=== PATIENT | female | born 2005 | race Caucasian/White ===

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

== ENCOUNTER 2025-01-01 06:38 | Observation (INO) | payer BC, SELFPAY ==
[2024-12-31 23:34] VITALS: BP 109/75
[2025-01-01 00:02] LABS: Urine Albumin 1+ (Neg - Trace); Urine Bilirubin Negative (Negative); Urine Glucose Negative (Negative); Urine Ketone Negative (Negative); Urine Leukocyte Negative (Negative); Urine Nitrite Negative (Negative); Urine Occult Blood 3+ (Negative); Urine Specific Gravity 1.015 (<1.030); Urine Urobilinogen Negative (Neg - 1+)
[2025-01-01 00:03] LABS: Urine Character Clear (Clear); Urine Color Yellow
[2025-01-01 00:20] LABS: Urine Bacteria Moderate (Negative)
[2025-01-01 00:53] LABS: HCG, Urine Qualitative Screen Negative
[2025-01-01 01:58] VITALS: BMI 19.3
[2025-01-01] MEDS: TYLENOL 650 MG PO ×2 (01:59→21:02)
[2025-01-01] MEDS: NSS 1000 IV ×3 (02:13→19:48)
[2025-01-01] MEDS: TORADOL 15 MG IV (02:13)
[2025-01-01] MEDS: COMPAZINE 10 MG IV (02:13)
[2025-01-01] MEDS: ROCEPHIN 2000 MG IV (02:23)
[2025-01-01] MEDS: BENADRYL 25 MG IV ×2 (02:28→02:42)
[2025-01-01 02:33] LABS: % Basophils 0.8 % (0-2); % Eosinophils 0.4 % (0-6); % Immature Granulocytes 0.2 % (0-0.5); % Lymphocytes 18.9 % (20.5-51.1); % Monocytes 12.6 % (1.7-9.3); % Neutrophils 67.1 % (42.2-75.2); Absolute Basophils 0.1 10^3/uL (0-0.2); Absolute Lymphocytes 1.8 10^3/uL (1.2-3.4); Absolute Monocytes 1.2 10^3/uL (0.1-0.6); Absolute Neutrophils 6.2 10^3/uL (1.4-6.5); Hematocrit 32.6 % (37.0-47.0); Hemoglobin 10.9 g/dL (12.0-16.0); Mean Corp Hgb Conc. 33.4 g/dL (33.0-37.0); Mean Corpuscular Hgb 26.3 pg (27.0-31.0); Mean Corpuscular Volume 78.7 fL (81.0-99.0); Mean Platelet Volume 9.8 fL (7.4-10.4); Nucleated Red Blood Cells % 0 %; Platelet Count 274 10^3/uL (130-400); Red Blood Cell Count 4.14 10^6/uL (4.20-5.40); Red Cell Dist. Width 13.2 % (11.5-14.5); White Blood Cell Count 9.3 10^3/uL (4.8-10.8)
[2025-01-01 02:43] LABS: Lactic Acid 0.6 mmol/L (0.7-2.0)
[2025-01-01 02:45] LABS: ALT (SGPT) 13 U/L (0-35); AST (SGOT) 20 U/L (14-36); Albumin 4.6 g/dl (3.5-5.0); Alkaline Phosphatase 66 U/L (38-126); Blood Urea Nitrogen 6 mg/dl (7-17); Calcium 9.3 mg/dl (8.4-10.2); Carbon Dioxide 23 mmol/L (22-30); Chloride 104 mmol/L (98-107); Estimated Creatinine Clearance 113 ml/min; Glucose 92 mg/dl (70-99); Potassium 3.7 mmol/L (3.5-5.1); Sodium 139 mmol/L (135-145); Total Bilirubin 0.7 mg/dl (0.2-1.3); Total Protein 7.4 g/dl (6.3-8.2); eGFR > 60.00
--- NOTE | 2025-01-01 03:47 | ED.GENMED ---
History of Present Illness
General
Chief Complaint: Flank Pain
Source: patient and family
Exam Limitations: none
Time Seen by Provider: 01/01/25 01:14
Nursing documentation reviewed up to this point in time: agreed with
History of Present Illness
History of Present Illness:
19-year-old female presenting to the emergency department today with concerns of flank pain mainly to the left side rating to her abdomen UTI. Symptoms do not been improving. Has had nausea vomiting some slight diarrhea. Also has a bit of
headache described as posterior some frontal pressure as well. Noticed a fever throughout the day today. Worse over the past few days was recently started on clindamycin 3 days ago for
Review of Systems
Review of Systems
Allergies reviewed?: Yes
All Other Systems: ROS reviewed and negative except as documented in HPI and ROS
Phy Exam
Physical Exam
Physical Exam:
GENERAL: Alert , in no apparent distress
EYE: pupils equal and reactive
NECK: Supple, no significant adenopathy.
ENT: o/p clr, mmm.
CARDIAC: Regular rate and rhythm .
LUNGS: Clear breath sounds bilaterally, no acute respiratory distress, no wheezes/rales/rhonchi
ABDOMEN: Left-sided abdominal pain to palpation as well as left-sided CVA tenderness
NEUROLOGICAL: Alert and oriented, no focal neuro deficits
SKIN: Warm and dry, skin intact.
MUSCULOSKELETAL: No edema, well perfused.
PSYCH: Normal and appropriate interaction.
Course
Orders/Labs/Results
Orders:
Orders
12/31/24 23:49
HCG, Urine Qualitative Screen Urgent
Date Specimen was Collected: 12/31/24
Time Specimen was Collected: 23:44
Comment: ADDED
Urinalysis Reflex To Culture Urgent
Date Specimen was Collected: 12/31/24
Time Specimen was Collected: 23:44
Urine Microscopic Reflex Cult Urgent
Urine Culture Urgent
ANDREI Source: U
Specimen Description:
Date Specimen was Collected: 12/31/24
Time Specimen was Collected: 23:44
01/01/25 00:35
Add On- LAB Urgent
Tests Added?: urine hcg qualitative
01/01/25 01:43
CT Abd/Pel (IV only)-DH only Urgent
Comment:
Reason For Exam: left flank/abd pain uti
0.9% Sodium Chloride 1000 ml [Nss] 1,000 ml IV BOLUS
Acetaminophen [Tylenol] 650 mg PO NOW STA
CefTRIAXone [Rocephin] 2,000 mg IV NOW STA
Ketorolac [Toradol] 15 mg IV NOW STA
Prochlorperazine [Compazine] 10 mg IV NOW STA
Test Result ONCE
01/01/25 01:47
Sterile Water [Sterile Water For Injection] 20 ml .ROUTE .[facility]
01/01/25 02:12
Complete Blood Count/With Diff Urgent
Comprehensive Metabolic Panel Urgent
Lactic Acid Urgent
Lyme Progressive Urgent
Blood Culture Q30M
ANDREI Source: Blood/Venous
Specimen Description:
Blood Culture Q30M
ANDREI Source: Blood/Venous
Specimen Description:
01/01/25 02:26
Diphenhydramine [Benadryl] 50 mg IV NOW STA
01/01/25 02:28
Diphenhydramine [Benadryl] 25 mg IV NOW STA
01/01/25 02:41
Diphenhydramine [Benadryl] 25 mg IV NOW STA
Abnormal Lab Results
12/31/24 01/01/25
23:49 02:12
RBC 4.14 L 10^6/uL
(4.20-5.40)
Hgb 10.9 L g/dL
(12.0-16.0)
Hct 32.6 L %
(37.0-47.0)
MCV 78.7 L fL
(81.0-99.0)
MCH 26.3 L pg
(27.0-31.0)
Absolute Monos (auto) 1.2 H 10^3/uL
(0.1-0.6)
Lymphocytes % 18.9 L %
(20.5-51.1)
Monocytes % 12.6 H %
(1.7-9.3)
BUN 6 L mg/dl
(7-17)
Lactic Acid 0.6 L mmol/L
(0.7-2.0)
Ur Occult Blood Reflex 3+ A
(Negative)
Urine RBC 7-10 A /HPF
(0-2)
Urine WBC (Reflex) 11-15 A /HPF
(0-5)
Urine Bacteria (Reflex) Moderate A
(Negative)
Urine Albumin (Reflex) 1+ A
(Neg - Trace)
01/01/25 02:12
01/01/25 02:12
Vital Signs
Initial and Last Documented VS:
Initial Vital Signs
Temp Pulse Resp BP Pulse Ox
101.4 F H 101 18 109/75 100
12/31/24 23:34 12/31/24 23:34 12/31/24 23:34 12/31/24 23:34 12/31/24 23:34
Last Documented Vital Signs
Temp Pulse Resp BP Pulse Ox
101.4 F H 102 20 109/75 98
12/31/24 23:34 01/01/25 03:00 01/01/25 03:00 12/31/24 23:34 01/01/25 03:30
MDM/Problems Addressed
MDM/Problems Addressed:
19-year-old female presenting to the emergency department today with concerns of urinary symptoms of the past few days has been on clindamycin for a few days without improvement also has flank pain with radiation to the left abdomen has some
generalized achiness at this point as well as headache nausea and vomiting. On arrival febrile to 1-1.4 mildly tachycardic. Urinalysis consistent with potential infection. Otherwise labs without emergent findings. Patient was complaining of some
headache nausea was given Compazine have what appeared to be akathisia was given Benadryl had improvement of symptoms over the next half an hour or so. CT scan confirming pyelonephritis. Considering this plan to admit with IV antibiotics
concerning failed outpatient oral antibiotics.
*Critical Care Note
Total Time (30-74mins, 75-104mins- exclusive of procedures): Not Applicable
ED Attending Note
-
Portions of this chart may have been created with voice recognition software.� Occasional wrong word or��sound alike� substitutions may have occurred due to the inherent limitations of voice recognition software.
Discharge Plan
Departure
Patient Disposition: Admit
Date of Disposition: 01/01/25
Time of Disposition: 05:55
Admit to: Med/Surg
Admit to doctor: Chanell
Presentation/result/management discussed w/ accepting MD/DO: Hospitalist
Patient with high blood pressure during this ER visit?: No
Condition: Good
Covid-19: Not Applicable
Discharge Problem:
Pyelonephritis
Prescriptions:
No Action
sertraline [Zoloft] 100 mg Tablet
125 mg PO DAILY
Pepcid
20 mg PO DAILY
ondansetron 4 mg tablet,disintegrating
4 mg PO Q8H PRN (Reason: nausea and vomiting) Qty: 10 0RF
cetirizine [Zyrtec] 10 mg Tablet
10 mg PO DAILY
Ellura
36 mg PO DAILY
Referrals:
Josefina Wing DO [Family Provider] -
Interventions
Interventions:
*Risk Screen - Suicide Last Done: 12/31/24 23:34
*Neglect/Abuse Screening Last Done: 01/01/25 02:39
*ED- Fall Risk Assessment Last Done: 01/01/25 02:39
*ED COVID-19 Vaccine History Last Done: 01/01/25 02:39
Discharge Date and Time
Print Language: MACEDONIAN
[2025-01-01 05:21] VITALS: BP 117/62
--- NOTE | 2025-01-01 05:57 | HPS.HSE ---
Family Physician
-
Family Physician: Josefina Wing
Chief Complaint
-
Flank pain
History of Present Illness
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
Patient started having flank pain on Saturday. She had associated nausea and vomiting. Is unclear whether she had fevers at home. She was seen at urgent care and was started on clindamycin for urinary tract infection. Patient continues to have
symptoms and today she had a fever nausea and vomiting so she came to the emergency department for further evaluation. She has continued to have flank pain.
She was seen in ED multiple times a year ago for flank pain and was found to have pyelonephritis at that time. She was treated with antibiotics. Ultimately she was placed on probiotic agent and has not had urinary tract infections since then.
In the emergency department today she was febrile to 101.4, blood pressure was 109/75 with a pulse of 110.
CBC was unremarkable. Electrolytes BUN/creatinine were all in the normal range. CT scan of the abdomen pelvis suggesting mild left-sided pyelonephritis. No obstruction in ureteral calculus or hydroureteronephrosis. 2.3 cm simple cyst versus
dominant follicle in the left ovary.
Medical History
Past Medical History
Past Medical History: Reports Asthma (exercise induced), Cancer (BRAC2 +), GERD, Psychiatric (anxiety, depression) and Other (Roto virus)
Past Surgical History: Reports Orthopedic (Knee )
Social History
Tobacco: Non-smoker
Alcohol: None
Drug: None
Personal: Single
Living: With Family
Family History
Family History: Not pertinent
Allergies / Home Medications
Allergies reflects when Allergies were last updated in [employer].
Home Medications with original date entered in [employer]
Allergy/Medication List:
Allergies
Allergy/AdvReac Type Severity Reaction Status Date / Time
amoxicillin Allergy Rash Verified 12/31/24 23:34
prochlorperazine Allergy Unknown Verified 01/01/25 02:44
[From Compazine]
Sulfa (Sulfonamide Allergy Rash Verified 12/31/24 23:34
Antibiotics)
Home Medications
sertraline 100 mg tablet (Zoloft) 125 mg PO DAILY Depression 07/31/22
Pepcid 20 mg PO DAILY 03/17/23
ondansetron 4 mg disintegrating tablet 4 mg PO Q8H PRN nausea and vomiting #10 tabs 11/24/23
Ellura 36 mg PO DAILY 01/01/25
cetirizine 10 mg tablet (Zyrtec) 10 mg PO DAILY 01/01/25
Review of Systems
-
History Source: Patient
Constitutional: Reports Fever
EENT: Reports No Symptoms
Respiratory: Reports No Symptoms
Cardiac: Reports No Symptoms
Abdomen/GI: Reports No Symptoms
: Reports Flank Pain
Musculoskeletal: Reports No Symptoms
Skin: Reports No Symptoms
Endocrine: Reports No Symptoms
Hematologic/Lymphatic: Reports No Symptoms
Psych: Reports No Symptoms
Physical Exam
Vital Signs
Vital Signs
Temp Pulse Resp BP Pulse Ox
101.4 F H 102 20 109/75 98
12/31/24 23:34 01/01/25 03:00 01/01/25 03:00 12/31/24 23:34 01/01/25 03:30
Physical Exam
General: Well Developed, Well Nourished and Comfortable
HEENT: NormoCephalic, Anicteric, Moist mucous membranes and Atraumatic
Respiratory: Clear
Cardiac: S1/S2 and Regular Rhythm
Breast: Deferred by me
GI: Soft, Non Tender, Non Distended and Normal Bowel Sounds
Rectal: Deferred by Provider
Genito-urinary: Deferred by me
Musculoskeletal: No Clubbing, No Cyanosis and No Edema
Skin: Warm
Neuro: AO x 3 and Nonfocal/grossly intact
Psych: Calm
Laboratory Results
-
01/01/25 02:12
01/01/25 02:12
Laboratory Results
Lactic Acid 0.6 mmol/L (0.7-2.0) L 01/01/25 02:12
Total Bilirubin 0.7 mg/dl (0.2-1.3) 01/01/25 02:12
AST 20 U/L (14-36) 01/01/25 02:12
ALT 13 U/L (0-35) 01/01/25 02:12
Alkaline Phosphatase 66 U/L (38-126) 01/01/25 02:12
Data Reviewed
-
CT Scan: Report Reviewed by me
Lab Data: Labs Reviewed by me
Old Records: Reviewed
Impression/Plan
-
IMPRESSION:
19 y.o with h/o UTI presenting to ED with persistent flank pain and fever after 48 hours of oral abx. U/A positive and CT a/p c/w pyelo. Was on clinda for 2 days prior.
PLAN:
Pyelonephritis - On clinda, based on prior sensitive should respond to normal UTI abx so will start IV and transition to PO when tolerating po well
- admit to med/surg
- blood and urine cultures sent
- IV ceftriaxone
- pain control and antiemetics
- hydration as needed.
DVT PPX - SCDs
Code status - full code
--- NOTE | 2025-01-01 07:50 | W.PN.HOSP.TC ---
Today's Communication/Plan
-
See plan
Assessment / Plan
Assessment / Plan
Physical Exam
General: Not in acute distress
HEENT: Normocephalic, Moist mucous membranes and Atraumatic
Respiratory: Clear to Auscultation Bilaterally
Cardiac: S1/S2 and Regular Rhythm
GI: Soft, Non Tender, Non Distended and Normal Bowel Sounds
Musculoskeletal: No Cyanosis and No Edema
Skin: Warm. Dry.
Neuro: AAO x 3 and Nonfocal/grossly intact
Psych: Calm
Assessment/Plan
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 Patient started having flank pain on December 28, 2024. She had
associated nausea and vomiting. It was unclear whether patient had any fevers at home. She was seen at urgent care and was started on Clindamycin for urinary tract infection. Patient continues to have symptoms and 12/31-01/01 she had a fever nausea
and vomiting so she came to the emergency department for further evaluation. She was seen in ED multiple times a year ago for flank pain and was found to have pyelonephritis at that time. She was treated with antibiotics. Ultimately she was placed
on probiotic agent and Cranberry Juice and has not had urinary tract infections since then. In the emergency department she was febrile to 101.4, blood pressure was 109/75 with a pulse of 110. CBC was unremarkable. Electrolytes BUN/creatinine were
all in the normal range. CT scan of the abdomen pelvis suggesting mild left-sided pyelonephritis. No obstruction in ureteral calculus or hydroureteronephrosis. 2.3 cm simple cyst versus dominant follicle in the left ovary.
Pyelonephritis - On clinda, based on prior sensitive should respond to normal UTI abx so will start IV and transition to PO when tolerating po well
History of Urethral Diverticulum
- Monitor on telemetry given tachycardia and soft blood pressures
- Had taken 2 days course of Clindamycin outpatient
- Follow-up blood and urine cultures
- IV ceftriaxone
- pain control and antiemetics
- hydration as needed.
- Appreciate ID
- Follow-up with urology outpatient
Compazine 'Allergy' associated with Shaking
Chronic Sweating
-Since age 10, as per patient's mother
BRCA2 positive
History of Endometriosis with surgery in March 2023 with removal of 9 lesions (as per patient's mother)
Sushila-Danlos syndrome - Hypermobile
2.2 cm left ovarian cyst
Mild free fluid in the pelvis
-As per radiologist, this may be physiologic; a recently ruptured cyst cannot be excluded.
DVT Prophylaxis - SCDs
Code Status - Full Code
Anticipated Discharge: 24 - 48 hours
Subjective/Interval History
-
Date of Service: January 01, 2025
Patient was seen and examined. She was sleeping after getting Benadryl for vomiting and headache.
Objective Data
-
Labs:
Laboratory Results
01/01/25
02:12
WBC 9.3
Hgb 10.9 L
Hct 32.6 L
Plt Count 274
Sodium 139
Potassium 3.7
Chloride 104
Carbon Dioxide 23
BUN 6 L
Creatinine 0.6
Glucose 92
Calcium 9.3
Total Bilirubin 0.7
AST 20
ALT 13
Alkaline Phosphatase 66
Vital Signs:
Vital Signs
Temp Pulse Resp BP Pulse Ox
98.3 F 72 18 117/62 98
01/01/25 06:00 01/01/25 06:00 01/01/25 06:00 01/01/25 05:21 01/01/25 06:00
[2025-01-01] MEDS: ZYRTEC 10 MG PO (09:18)
[2025-01-01] MEDS: PEPCID 20 MG PO (09:18)
[2025-01-01] MEDS: ZOLOFT 25 MG PO (09:18)
[2025-01-01] MEDS: ZOLOFT 100 MG PO (09:19)
[2025-01-01 09:21] VITALS: BP 97/56
--- NOTE | 2025-01-01 12:15 | PTCARENOTE ---
pt received as an admission to room 1145-01 from ED. pt ambulated from stretcher to bed without difficulty. Pt AAOX3, denies pain at this time. NS infusing per orders. pt oriented to unit and room. mother at bedside. updated on plan of care.
[2025-01-01 12:18] VITALS: BP 97/61; BMI 19.1
--- NOTE | 2025-01-01 14:07 | CON.ID ---
Addendum entered and electronically signed by Linn Moore MD 01/01/25 17:28:
I personally performed a history and physical exam of the patient and discussed management with the resident. I reviewed the resident's note and agree with the documented findings and plan of care HPI/CC with the following additions/corrections.
HPI: Ms Lazaro is a 19 year old female with history of recurrent UTIs attributed to urethral diverticulum who presented here today for flank pain since saturday, nausea, and vomiting. Saw urgent care and was started on clindamycin for UTI. Symptoms
did not improve and she developed fever today and presented here. Recurrent UTIs improved for several years on a cranberry juice supplement and this is her first one for several years.
Since arrival here she has been febrile to 101.4, bp overall stable though a bit hypotensive this afternoon, mild tachycardia has resolved, wbc 9.3, hgb 10.9, plt 274, no L shift, na 139, cr 0.6, lfts wnl, beta hcg negative, a lyme screen was sent
by the ER in progress, UA: 11-15 wbc/hpf and moderate bacteria, CT a/p with IV contrast only: mild pyelonephritis, urine and blood cultures x2 are in progress. She has received ceftriaxone without adverse effect.
Physical Exam
General: Comfortable
Respiratory: Clear to auscultation BL
Cardiac: S1/S2 and Regular Rhythm
GI: Soft, Non Tender, Non Distended and Normal Bowel Sounds
: no suprapubic tenderness, mild L sided CVA tenderness
Skin: Warm, some folliculitis on the chest
Assessment and Plan
Recurrent UTIs
Suspected UTI
H/o allergy to amoxicillin - rash; bactrim rash
- urine culture in progress
- blood cultures x2 in progress
- recommend against further strep screens in this 19 year old female
- Mom did a home influenza test that was faintly positive hours after the appropriate read time - symptoms have already resolved, do not recommend an antiviral at this time.
- follow clinically overnight on ceftriaxone, if discharge is planned could discharge with cefdinir 300 mg PO BID x14 days
- follow up with PCP re: lyme serologies. I would not have recommended them as her symptoms were consistent with UTI and have already resolved. Note that once positive lyme serologies typically remain positive for life.
Original Note:
Consultation
-
Date/Time Consultation Requested: 01/01/2025 2:45
Date/Time Consultation Performed: 01/01/2025 14:20
Requesting Provider: Bryant Arredondo MD
Performing Provider: Linn Moore MD
Reason for Consultation: Recurrent Pyelonephritis. urethral diverticulum,h/o endometriosis surgery
Chief Complaint / Past History
Chief Complaint
Recurrent pyelonephritis
History of Present Illness
Ms. Lazaro is a 19-year-old female with PMH of recurrent UTI 2/2 urethral diverticulum who presented to the ED on 01/01/2025 with 5 days history of left-sided flank pain. Patient was seen at bedside with mom and reports fever at home Tmax 103 on
Saturday with 1 episode of vomiting and diarrhea. She continued to have fever between 101-102 and went to urgent care 3 days ago where she was prescribed clindamycin given penicillin allergy (rash 2 years ago). Patient's symptoms did not improve
necessitating her visit to the ED today.
Patient's mom reports that patient was seen in the ED x 2 in October 2023 for similar presentation and was prescribed cranberry juice which has helped since then. While in the ED, she had a fever of 101.4, pulse 101, respiratory 18, BP 109/75 and
saturating at 100% on room air. Her chemistry shows WBC count of 9.3, Hb 10.9.
Past History
Past Medical History: Asthma (Exercise-induced), Cancer (BRCA2), GERD and Psychiatric (Anxiety, depression)
Past Surgical History: Orthopedic
Allergy History:
amoxicillin Allergy (Mild, Verified 01/01/25 13:47)
Rash
prochlorperazine [From Compazine] Allergy (Verified 01/01/25 02:44)
Unknown
Sulfa (Sulfonamide Antibiotics) Allergy (Verified 12/31/24 23:34)
Rash
Medications Reviewed: Yes
Social History
Tobacco: Non-Smoker
Alcohol: None
Drug: None
Personal: Single
Living: With Family
Family History
Family History: Not Pertinent
Review of Systems
Review of Systems
General: Fever; Negative Chills or Change in Appetite
HEENT: Negative Lymphadenopathy, Stiff Neck or Sinus Problems
Cardiovascular: Negative Chest Pain, Dyspnea, Edema or Palpitations
Respiratory: Negative Dyspnea, Cough or Cyanosis
Gasteroenterology: Negative Weight Loss, Nausea or Vomiting
Genital / Urological: Negative Dysuria, Hematuria or Stones
Musculoskeletal: Negative Joint Pain or Joint Swelling
Skin / Hair / Nails: Negative Urticaria, Rash, Lesions or Nail Changes
Neurological: Negative Headache
Psychological: Depression
All systems: All other systems were reviewed and were negative
Vital Signs
Temp Pulse Resp BP Pulse Ox
97.9 F 80 16 97/61 99
01/01/25 12:18 01/01/25 12:18 01/01/25 12:18 01/01/25 12:18 01/01/25 12:18
Physical Exam
Physical Exam
Constitutional: No Acute Distress and Comfortable
Eyes: Pupils Equal and Sclera Anicteric
Cardiovascular: Regular Rate and S1/S2; Negative Murmur or Rub
Pulmonary: Clear and Symmetric; Negative Wheezes, Rales or Rhonchi
Gastrointestinal: Soft, Non Tender, Non Distended and Normal Bowel Sounds
Musculoskeletal: Negative Joint Swelling or Joint Effusion
Skin: Warm and Dry; Negative Rash or Jaundice
Wound: None
Neurological: Awake, AO x 3 and No Motor Deficits
Psychological: Calm
Lab / Diagnostic Study Results
01/01/25 02:12
01/01/25 02:12
Abs Immat Gran (auto) 0.0 10^3/uL (0-0.05) 01/01/25 02:12
Absolute Neuts (auto) 6.2 10^3/uL (1.4-6.5) 01/01/25 02:12
Absolute Lymphs (auto) 1.8 10^3/uL (1.2-3.4) 01/01/25 02:12
Absolute Monos (auto) 1.2 10^3/uL (0.1-0.6) H 01/01/25 02:12
Absolute Basos (auto) 0.1 10^3/uL (0-0.2) 01/01/25 02:12
Immature Gran % 0.2 % (0-0.5) 01/01/25 02:12
Neutrophils % 67.1 % (42.2-75.2) 01/01/25 02:12
Lymphocytes % 18.9 % (20.5-51.1) L 01/01/25 02:12
Monocytes % 12.6 % (1.7-9.3) H 01/01/25 02:12
Eosinophils % 0.4 % (0-6) 01/01/25 02:12
Basophils % 0.8 % (0-2) 01/01/25 02:12
Lactic Acid 0.6 mmol/L (0.7-2.0) L 01/01/25 02:12
Ur Squamous Epith Cells 6-10 /LPF (Few) 12/31/24 23:49
Microbiology Results
Micro:
01/01/25 02:12 Blood Culture - Pending
Blood/Venous
01/01/25 02:12 Blood Culture - Pending
Blood/Venous
12/31/24 23:49 Urine Culture - Pending
Urine
Assessment / Plan
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
Assessment/plan:
#History of recurrent UTIs
#Pyelonephritis
- CT abdomen and pelvis consistent with pyelonephritis.
- Patient reports E. coli from cultures obtained at urgent care.
- Continue IV ceftriaxone, will give 1 more dose.
- Patient has history of penicillin allergy 2 years ago with urticarial rash and sulfa allergies.
- Will send home on cefdinir to complete 14 days course of antibiotics
Care Review
Plan reviewed with: Physician
--- NOTE | 2025-01-01 15:00 | CM ---
Met with patient and her mother at bedside
[facility] verified: [facility] [id number]
Patient lives with family; multilevel home; 3 steps to enter; 12 steps between floors; railings on stairs; her bedroom and bath on 2nd floor; bath has stall shower w/grab bar
PLOF: independent with ambulation, stairs, and ADLs; drives
Mother will transport home
Outpatient Observation Status Notice explained to mother; form signed @ [id number]
Plan: Discharge to home; no needs anticipated
[2025-01-01 15:45] VITALS: BP 98/60
[2025-01-01 19:29] VITALS: BP 94/58
[2025-01-01 23:23] VITALS: BP 105/55
[2025-01-02 03:13] VITALS: BP 97/58
[2025-01-02] MEDS: ROCEPHIN 2000 MG IV (05:55)
[2025-01-02] MEDS: STERILE WATER FOR INJECTION 20 ML IV (05:55)
[2025-01-02] MEDS: NSS 1000 IV (06:00)
[2025-01-02] MEDS: PEPCID 20 MG PO (07:25)
[2025-01-02] MEDS: ZOLOFT 100 MG PO (07:26)
[2025-01-02] MEDS: ZOLOFT 25 MG PO (07:27)
[2025-01-02] MEDS: ZYRTEC 10 MG PO (07:27)
[2025-01-02 07:31] VITALS: BP 109/72
[2025-01-02 09:41] LABS: % Basophils 0.9 % (0-2); % Eosinophils 2.4 % (0-6); % Immature Granulocytes 0.4 % (0-0.5); % Lymphocytes 25.2 % (20.5-51.1); % Monocytes 6.6 % (1.7-9.3); % Neutrophils 64.5 % (42.2-75.2); Absolute Basophils 0.1 10^3/uL (0-0.2); Absolute Eosinophils 0.1 10^3/uL (0-0.7); Absolute Lymphocytes 1.4 10^3/uL (1.2-3.4); Absolute Monocytes 0.4 10^3/uL (0.1-0.6); Absolute Neutrophils 3.5 10^3/uL (1.4-6.5); Hematocrit 30.7 % (37.0-47.0); Hemoglobin 9.8 g/dL (12.0-16.0); Mean Corp Hgb Conc. 31.9 g/dL (33.0-37.0); Mean Corpuscular Hgb 25.9 pg (27.0-31.0); Mean Corpuscular Volume 81.2 fL (81.0-99.0); Mean Platelet Volume 10.1 fL (7.4-10.4); Nucleated Red Blood Cells % 0 %; Platelet Count 236 10^3/uL (130-400); Red Blood Cell Count 3.78 10^6/uL (4.20-5.40); Red Cell Dist. Width 13.2 % (11.5-14.5); White Blood Cell Count 5.4 10^3/uL (4.8-10.8)
[2025-01-02 10:02] LABS: Blood Urea Nitrogen 8 mg/dl (7-17); Calcium 8.9 mg/dl (8.4-10.2); Carbon Dioxide 27 mmol/L (22-30); Chloride 110 mmol/L (98-107); Estimated Creatinine Clearance 112 ml/min; Glucose 118 mg/dl (70-99); Magnesium 1.6 mg/dl (1.6-2.3); Sodium 142 mmol/L (135-145); eGFR > 60.00
--- NOTE | 2025-01-02 11:12 | W.PN.ID1 ---
Date of Service
Date of Service: January 02, 2025
Today's Communication
- could discharge with cefdinir 300 mg PO BID x14 days total
- follow up with PCP re: lyme serologies. I would not have recommended them as her symptoms were consistent with UTI and have already resolved. Note that once positive lyme serologies typically remain positive for life.
ID service will no longer actively follow this patient please recall for further questions
Assessment / Plan
Assessment and Plan
Recurrent UTIs
Suspected UTI
H/o allergy to amoxicillin - rash; bactrim rash
- outpatient urine culture
- urine culture in progress - no growth here
- blood cultures x2 in progress
- could discharge with cefdinir 300 mg PO BID x14 days total
- follow up with PCP re: lyme serologies. I would not have recommended them as her symptoms were consistent with UTI and have already resolved. Note that once positive lyme serologies typically remain positive for life.
ID service will no longer actively follow this patient please recall for further questions
Chief Complaint
-: UTI
Subjective / Review of Systems
afebrile
bp stable
tolerating current therapies
Vital Signs / Physical Exam
Vital Signs
Vital Signs
Temp Pulse Resp BP Pulse Ox
98.0 F 82 16 109/72 98
01/02/25 07:31 01/02/25 07:31 01/02/25 07:31 01/02/25 07:31 01/02/25 07:31
Physical Exam
Constitutional: No Acute Distress
Cardiovascular: Regular Rate and S1/S2; Negative Murmur or Rub
Pulmonary: Clear and Symmetric; Negative Wheezes or Rales
Gastrointestinal: Soft, Non Tender, Non Distended and Normal Bowel Sounds
Skin: Warm and Dry; Negative Rash or Jaundice
Objective Data
Lab Data
Lab Results
01/02/25 08:49
01/02/25 08:49
Estimated Creat Clear 112 ml/min 01/02/25 08:49
Lactic Acid 0.6 mmol/L (0.7-2.0) L 01/01/25 02:12
Total Bilirubin 0.7 mg/dl (0.2-1.3) 01/01/25 02:12
AST 20 U/L (14-36) 01/01/25 02:12
ALT 13 U/L (0-35) 01/01/25 02:12
Alkaline Phosphatase 66 U/L (38-126) 01/01/25 02:12
Most recent labs reviewed.
Micro Results:
12/31/24 23:49 Urine Culture - Final
Urine NO GROWTH
01/01/25 02:12 Blood Culture - Preliminary
Blood/Venous No Growth in 24 hours- Final report to follow
01/01/25 02:12 Blood Culture - Preliminary
Blood/Venous No Growth in 24 hours- Final report to follow
--- NOTE | 2025-01-02 14:48 | W.PN.HOSP.TC ---
Today's Communication/Plan
-
Discharge today
Assessment / Plan
Assessment / Plan
Physical Exam
General: Not in acute distress
HEENT: Normocephalic, Moist mucous membranes and Atraumatic
Respiratory: Clear to Auscultation Bilaterally
Cardiac: S1/S2 and Regular Rhythm
GI: Soft, Non Tender, Non Distended and Normal Bowel Sounds
Musculoskeletal: No Cyanosis and No Edema
Skin: Warm. Dry.
Neuro: AAO x 3 and Nonfocal/grossly intact
Psych: Calm
Assessment/Plan
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 Patient started having flank pain on December 28, 2024. She had
associated nausea and vomiting. It was unclear whether patient had any fevers at home. She was seen at urgent care and was started on Clindamycin for urinary tract infection. Patient continues to have symptoms and 12/31-01/01 she had a fever nausea
and vomiting so she came to the emergency department for further evaluation. She was seen in ED multiple times a year ago for flank pain and was found to have pyelonephritis at that time. She was treated with antibiotics. Ultimately she was placed
on probiotic agent and Cranberry Juice and has not had urinary tract infections since then. In the emergency department she was febrile to 101.4, blood pressure was 109/75 with a pulse of 110. CBC was unremarkable. Electrolytes BUN/creatinine were
all in the normal range. CT scan of the abdomen pelvis suggesting mild left-sided pyelonephritis. No obstruction in ureteral calculus or hydroureteronephrosis. 2.3 cm simple cyst versus dominant follicle in the left ovary.
Suspected Complicated UTI - Pyelonephritis
Recurrent UTIs
History of Urethral Diverticulum
- Monitor on telemetry given tachycardia and soft blood pressures
- Had taken 2 days course of Clindamycin outpatient
- Follow-up blood and urine cultures
- IV ceftriaxone while inpatient
- On discharge: Cefdinir 300 mg PO BID x14 days total
- Follow-up with PCP regarding Lyme Serology results
- Appreciate ID
- Follow-up with urology outpatient
Compazine Reaction: Shaking
H/o allergy to amoxicillin - rash; bactrim rash
Chronic Sweating
-Since age 10, as per patient's mother
BRCA2 positive
History of Endometriosis with surgery in March 2023 with removal of 9 lesions (as per patient's mother)
Sushila-Danlos syndrome - Hypermobile
2.2 cm left ovarian cyst
Mild free fluid in the pelvis
-As per radiologist, this may be physiologic; a recently ruptured cyst cannot be excluded.
DVT Prophylaxis - SCDs
Code Status - Full Code
I spoke to patient's mom inside patient's room today, and in the presence of the patient; patient's mom said she was happy with patient's improvement and she agrees with discharging the patient home today.
More than 30 minutes spent in discharge including
Final examination of the patient
Summarizing hospital stay
Instructions for continuing care to all relevant caregivers
Preparation of discharge records, prescriptions, and referral forms
Total time spent (in minutes): 37
Anticipated Discharge: Today
Subjective/Interval History
-
Date of Service: January 02, 2025
Patient was seen and examined. She reported feeling much better, denied pain, fever, nausea, or vomiting. She would like to go home today.
Objective Data
-
Labs:
Laboratory Results
01/02/25
08:49
WBC 5.4
Hgb 9.8 L
Hct 30.7 L
Plt Count 236
Sodium 142
Potassium 4.0
Chloride 110 H
Carbon Dioxide 27
BUN 8
Creatinine 0.5 L
Glucose 118 H
Calcium 8.9
Vital Signs:
Vital Signs
Temp Pulse Resp BP Pulse Ox
98.0 F 82 16 109/72 98
01/02/25 07:31 01/02/25 07:31 01/02/25 07:31 01/02/25 07:31 01/02/25 11:20
I&O
01/01/25 01/02/25 01/03/25
06:59 06:59 06:59
Intake Total 1959 300 / 300
Balance 1959 300 / 300
[2025-01-02] MEDS: NSS IV (14:59)
[2025-01-02 15:21] VITALS: BP 105/65
--- NOTE | 2025-01-02 15:22 | W.DCSUMMARY ---
Discharge Summary
Discharge Data
Date of Admission: 01/01/25
Date of Discharge: 01/02/25
Total time spent discharging patient (in min): 37
-
Pending Results: Yes
Additional Pending Results:
Final results of blood cultures from January 01, 2025
Hospital Course
19-year-old female with past medical history of antibiotic allergies (rash with Amoxicillin and Bactrim) and recurrent urinary tract infections thought to be secondary to urethral diverticulum who presented to the emergency department with flank
pain. Abdomen/Pelvis CT was done showing (as per radiologist's report) possible mild acute pyelonephritis; 2.2 cm left ovarian cyst; mild free fluid in the pelvis. which could be physiologic - a recently ruptured cyst cannot be excluded. Patient was
determined to have complicated urinary tract infection and was started on intravenous Ceftriaxone. Patient's urine culture showed no growth. Patient's symptoms improved significantly and she was stable for discharge with Cefdinir oral antibiotics to
complete a total of 14 days course of antibiotics.
Discharge Plan
-
Patient Disposition: Home (Routine Discharge)
Discharge Diagnosis/Procedures: Suspected Complicated UTI - Pyelonephritis
Recurrent UTIs
History of Urethral Diverticulum
Compazine Reaction: Shaking
History of allergy to amoxicillin - rash; Bactrim rash
Chronic Sweating
BRCA2 positive
History of Endometriosis with surgery in March 2023 with removal of 9 lesions (as per patient's mother)
Sushila-Danlos syndrome - Hypermobile
2.2 cm left ovarian cyst
Mild free fluid in the pelvis
Condition: Good
Diet: Regular
Activity: As tolerated
Instructions: Cefdinir
Referrals:
Josefina Wing, [Family Provider] - in less than 1 week
Additional Discharge Medication Instructions: Cefdinir is a new antibiotic -- you should take the first dose on the morning of January 03, 2025, and continue for 12 days (Day 1 of 12 is January 03, 2025)
Prescriptions:
New
cefdinir 300 mg capsule
300 mg PO Q12H 12 Days Qty: 24 0RF
Rx Instructions:
First dose to be on January 03, 2025 morning
Continued
sertraline [Zoloft] 100 mg Tablet
125 mg PO DAILY
Pepcid
20 mg PO DAILY
cetirizine [Zyrtec] 10 mg Tablet
10 mg PO DAILY
Ellura
36 mg PO DAILY
Discontinued
ondansetron 4 mg tablet,disintegrating
4 mg PO Q8H PRN (Reason: nausea and vomiting) Qty: 10 0RF
Discharge Orders:
Discharge Patient (As Directed); Ordered 01/02/25
Ordered By: Bryant Arredondo
Discharge Date and Time
Discharge Date/Time: 01/02/25 16:21
Print Language: LAO
--- NOTE | 2025-01-02 16:18 | CM ---
Home no needs.
Plan; Home today no needs.
--- NOTE | 2025-01-02 16:20 | PTCARENOTE ---
Discharge order acknowledged. Discharge instructions reviewed with patient and patient's mother at bedside. No further questions. IV site removed. Pt escorted to mother's car by wheelchair.
[2025-01-04 13:52] LABS: Lyme Antibody Screen, EIA Negative (Negative)
== END 2025-01-02 16:21 | disposition home or self-care (01) ==
LOC: 1 ACUTE 06:38
PROVIDERS: Physician Assistant; ADMITTING PHYSICIAN Internal Medicine; ATTENDING PHYSICIAN Hospitalist; CONSULT PHYSICIAN Student in an Organized Health Care Education/Training Program; EMERGENCY PHYSICIAN Student in an Organized Health Care Education/Training Program; FAMILY PHYSICIAN Pediatrics
DX: N12 Tubulo-interstitial nephritis, not specified as acute or chronic (principal); R10.9 Unspecified abdominal pain; R11.2 Nausea with vomiting, unspecified; R19.7 Diarrhea, unspecified; R51.9 Headache, unspecified; Z15.01 Genetic susceptibility to malignant neoplasm of breast; N83.202 Unspecified ovarian cyst, left side; Q79.60 Ehlers-Danlos syndrome, unspecified; Z87.440 Personal history of urinary (tract) infections
CPT/HCPCS: 74177; 80048; 80053; 81003; 81015; 81025; 83605; 83735; 85025; 86618; 87040; 87086; 96361; 96374; 96375; 99285; G0378; Q9967